=== PATIENT | male | born 1970 | race Two or more races ===

== ENCOUNTER 2017-02-04 09:44 | Emergency (ER) | payer SELFPAY ==
[~2017-02-04] VITALS: Ht 160 cm; Wt 82.5 kg
[2017-02-04 12:36] VITALS: BP 131/68
== END 2017-02-04 12:36 | disposition home or self-care (01) ==
LOC: ED 09:44
DX: T78.3XXA Angioneurotic edema, initial encounter (principal); Z88.0 Allergy status to penicillin
CPT/HCPCS: J0171; J1200; J2930; J3490; Q0092